=== PATIENT | male | born 1995 ===

== ENCOUNTER 2016-08-30 14:48 | Emergency (ER) | payer OTHER ==
[2016-08-30] MEDS ORDERED: Lidocaine 2% W/EPI 1:100,000* 20 ML MDV ONE (15:42)
--- NOTE | 2016-08-30 15:42 | UC ---
Laceration HPI - HPI Summary HPI Summary: The patient comes in today for: 1. Laceration of the left upper, inner arm: Onset: 14 hours ago. Palliative/provocative: Pressure on the area causes pain. Quality: Ache Region: Upper left arm. Severity: 4/10 Time: Constant. Associated symptoms: Event: While drinking last night, he fell to the ground. He does not remember exactly how he injured himself other than the fall to the ground. This was about 2 AM yesterday. Not much blood came out. He did not cover the wound when it happened. * - History Of Current Complaint Chief Complaint: UCLaceration Stated Complaint: LACERATION ON ARM Hx Obtained From: Patient - Allergies/Home Medications Allergies/Adverse Reactions: Allergies Allergy/AdvReac Type Severity Reaction Status Date / Time No Known Allergies Allergy Verified 08/30/16 15:06 PMH/Surg Hx/FS Hx/Imm Hx Previously Healthy: Yes Endocrine History Of: Denies: Diabetes, Thyroid Disease, Hyperthyroidism, Hypothyroidism, Dyslipidemia Cardiovascular History Of: Denies: Cardiac Disorders, Hypertension, Pacemaker/ICD, Myocardial Infarction , Congestive Heart Failure, Atrial Fibrillation, Deep Vein Thrombosis, Bleeding Disorders Respiratory History Of: Denies: COPD, Asthma, Bronchitis, Pneumonia, Pulmonary Embolism GI/ History Of: Denies: Gastroesophageal Reflux, Ulcer, Gastrointestinal Bleed, Gall Bladder Disease, Kidney Stones, Diverticulitis, Renal Disease, Urosepsis Neurological History Of: Denies: TIA, CVA, Dementia, Seizures, Migraine Psychological History Of: Denies: Anxiety, Depression, Bipolar Disorder, Schizophrenia, Post Traumatic Stress Disorder Cancer History Of: Denies: Lung Cancer, Colorectal Cancer, Breast Cancer, Prostate Cancer, Cervical Cancer Other History Of: Negative For: HIV, Hepatitis B, Hepatitis C, Anticoagulant Therapy - Surgical History Surgical History: None - Family History Known Family History: Negative: Cardiac Disease, Hypertension - Social History Occupation: Student Alcohol Use: Weekly Substance Use Type: None Smoking Status (MU): Never Smoked Tobacco Review of Systems Constitutional: Negative Skin: Negative Eyes: Negative ENT: Negative Respiratory: Negative Cardiovascular: Negative Gastrointestinal: Negative Genitourinary: Negative All Other Systems Reviewed And Are Negative: Yes Physical Exam Triage Information Reviewed: Yes Appearance: Well-Appearing, No Pain Distress, Well-Nourished Vital Signs: Initial Vital Signs Temp 98.6 F 08/30/16 15:02 Pulse 79 08/30/16 15:02 Resp 16 08/30/16 15:02 BP 146/70 08/30/16 15:02 Pulse Ox 100 08/30/16 15:02 Vital Signs Reviewed: Yes Eyes: Positive: Conjunctiva Clear. Negative: Discharge ENT: Positive: Hearing grossly normal. Negative: Pharyngeal erythema, Nasal congestion, Nasal drainage, TM bulging, TM dull, TM red, Tonsillar swelling, Tonsillar exudate Dental: Negative: Gross Decay/Caries @, Dental Fracture @ Neck: Positive: Supple, Nontender, No Lymphadenopathy. Negative: Nuchal Rigidity Respiratory: Positive: Chest non-tender, Lungs clear, No respiratory distress, No accessory muscle use. Negative: Crackles, Wheezing Cardiovascular: Positive: RRR, No Murmur Abdomen Description: Positive: Nontender, No Organomegaly, Soft. Negative: Distended, Guarding Musculoskeletal: Positive: Strength Intact, ROM Intact, No Edema Neurological: Positive: Alert, Muscle Tone Normal Psychological: Positive: Age Appropriate Behavior, Consolable Skin: Positive: Other - There is an ecchymotic area about 3" in diameter with a laceration in the mid, inner left upper arm. No bleeding. Laceration Repair - Laceration Repair 1 Description: Linear - 0.5 Laceration Size After Repair: Width (mm) - 5, Depth (mm) - 5 Modified For Repair: No Type Injection: Local Anesthesia Used: 2.0% Lido Additive Used (in ml): Epi Cleansing Completed Via Routine Prep: Yes Irrigation With Pressure Irrigation Device: Yes Closure Material: Sutures Closure Method: Single Layer Suture Of: Skin Suture Type: Nylon - Four 4-0 Nylon Laceration Course/Dx - Course/Dx Course Of Treatment: Patient tolerated the laceration repair with no problems. - Differential Dx - Laceration/Wound Provider Diagnoses: Laceration of the upper inner left arm. Discharge - Discharge Plan Condition: Stable Disposition: HOME Patient Education Materials: Care For Your Stitches (ED), Laceration (ED) Referrals: No Primary Care Phys,NOPCP [Primary Care Provider] - (Please see [place] [facility] or in 10-12 days for suture removal.) Additional Instructions: Watch the wound site daily checking for: 1. Increasing redness 2. Increasing swelling 3. Increasing tenderness 4. INcreased drainage. If any of these are occurring, you will need to be seen at that time for re- evaluation for possible infection.
[2016-08-30] MEDS ORDERED: Cephalexin CAP* 500 MG PO ONE (16:19)
== END 2016-08-30 16:30 | disposition home or self-care (01) ==
LOC: UCEAST 14:48
DX: S41.112A Laceration without foreign body of left upper arm, initial encounter (principal); W18.30XA Fall on same level, unspecified, initial encounter
CPT/HCPCS: 12001; 99202; A9270-GY; G0463